=== PATIENT | male | born 1960 | race Caucasian/White ===

== ENCOUNTER 2017-09-23 19:39 | Inpatient (IN) | END 2017-09-29 16:55 | disposition home or self-care (01) | DRG 389 ==

== ENCOUNTER 2018-03-31 10:25 | Emergency (ER) | payer BC, OTHER ==
[~2018-03-31] VITALS: Ht 167.6 cm; Wt 85.0 kg
[~2018-03-31 10:25] MED LIST: ONDA8TAB83 PO
[2018-03-31 10:28] VITALS: Ht 167.6 cm; Wt 85.0 kg
[2018-03-31] MEDS ORDERED: HYDROmorphONE 1 MG/ML SYG IV STA (11:31)
[2018-03-31] MEDS ORDERED: ONDANSETRON 4 MG INJ IV STA ×2 (11:31→14:09)
[2018-03-31] MEDS ORDERED: SOD CHLORIDE 0.9% 1,000 ML IV STA (11:31)
[2018-03-31] MEDS ORDERED: HYDROmorphONE 2 MG/ML SYG IV STA (12:49)
[2018-03-31] MEDS ORDERED: OXYC-279 PO (14:01)
[2018-03-31] MEDS ORDERED: NALO4SPR NS (14:01)
[2018-03-31 14:34] VITALS: BP 121/80; PULSE 83; RESP 16
--- NOTE | 2018-03-31 14:49 | ERD ---
ER Documentation Chief Complaint Chief Complaint Complains of abdominal pain and vomiting x 2 days HPI Patient is a 57-year-old male with stage IV colon cancer who presents with abdominal pain and vomiting. He has been dealing with this since August 2017. He said last night he started with pain and vomiting. He is on chemotherapy. He said that "maybe I have food poisoning". He said that his colostomy is putting out stool and that he does not think he is obstructed. He does feel dehydrated and is having whole body cramping. He denies fevers. He has had no treatment as of yet. He does have a primary doctor, surgeon, and oncologist that he sees. Upon review of old medical records the patient one previous visit in September 2017 for small bowel obstruction. ROS All systems reviewed and are negative except as per history of present illness. Medications Home Meds Active Scripts Naloxone HCl nasal spray (Narcan 4 mg/0.1 mL nasal) 4 Mg [place], 4 MG NS .Q2-3MIN for OPIOID OVERDOSE, #2 SPRAY 0 Refills [place] 0.1 mL into one nostril. Repeat with second device into other nostril after 2-3 minutes if no or minimal response Prov:BHASKAR GOODWIN MD 03/31/18 Oxycodone HCl/Acetaminophen (Percocet 5-325 mg Tablet) 1 Each Tablet, 1 EACH PO Q6, #6 TAB Prov:BHASKAR GOODWIN MD 03/31/18 Reported Medications Ondansetron Hcl* (Ondansetron Hcl*) 8 Mg Tablet, 8 MG PO Q6H PRN for NAUSEA AND OR VOMITING, TAB 09/23/17 Allergies Allergies: Coded Allergies: iodine (Verified Allergy, Mild, 09/23/17) PMhx/Soc History of Surgery: Yes (colon sx,rectal sx) Anesthesia Reaction: No Hx Neurological Disorder: No Hx Respiratory Disorders: No Hx Cardiac Disorders: No Hx Psychiatric Problems: No Hx Miscellaneous Medical Probl: No Hx Alcohol Use: No (last 4 years) Hx Substance Use: Yes Hx Tobacco Use: No Smoking Status: Never smoker FmHx Family History: diabetes Physical Exam Vitals Vital Signs Date Temp Pulse Resp B/P (MAP) Pulse Ox O2 O2 Flow FiO2 Time Delivery Rate 03/31/18 100.3 83 16 121/80 100 Room Air 14:34 (94) 03/31/18 84 20 108/74 99 Room Air 11:55 (85) 03/31/18 99.8 106 20 123/73 98 10:28 (90) Physical Exam Const: Mild distress Head: Atraumatic Eyes: Normal Conjunctiva ENT: Normal External Ears, Nose and Mouth. Neck: Full range of motion. No meningismus. Resp: Clear to auscultation bilaterally Cardio: Regular rate and rhythm, no murmurs Abd: Soft, stoma in the left abdomen is pink and putting out stool Skin: No petechiae or rashes Back: No midline or flank tenderness Ext: No cyanosis, or edema Neur: Awake and alert Psych: Normal Mood and Affect Result Diagram: 03/31/18 1158 03/31/18 1158 Results 24 hrs Laboratory Tests Test 03/31/18 11:58 White Blood Count 9.1 10^3/ul Red Blood Count 3.14 10^6/ul Hemoglobin 8.7 g/dl Hematocrit 27.5 % Mean Corpuscular Volume 87.6 fl Mean Corpuscular Hemoglobin 27.7 pg Mean Corpuscular Hemoglobin Concent 31.6 g/dl Red Cell Distribution Width 21.6 % Platelet Count 297 10^3/UL Mean Platelet Volume 10.4 fl Immature Granulocytes % 0.700 % Neutrophils % 76.4 % Lymphocytes % 11.4 % Monocytes % 11.2 % Eosinophils % 0.0 % Basophils % 0.3 % Nucleated Red Blood Cells % 0.0 /100WBC Immature Granulocytes # 0.060 10^3/ul Neutrophils # 7.0 10^3/ul Lymphocytes # 1.0 10^3/ul Monocytes # 1.0 10^3/ul Eosinophils # 0.0 10^3/ul Basophils # 0.0 10^3/ul Nucleated Red Blood Cells # 0.0 10^3/ul Sodium Level 137 mmol/L Potassium Level 4.2 mmol/L Chloride Level 99 mmol/L Carbon Dioxide Level 25 mmol/L Anion Gap 13 Blood Urea Nitrogen 20 mg/dl Creatinine 0.67 mg/dl Est Glomerular Filtrat Rate mL/min > 60 mL/min Glucose Level 110 mg/dl Calcium Level 8.9 mg/dl Total Bilirubin 0.2 mg/dl Direct Bilirubin 0.00 mg/dl Indirect Bilirubin 0.2 mg/dl Aspartate Amino Transf (AST/SGOT) 22 IU/L Alanine Aminotransferase (ALT/SGPT) 14 IU/L Alkaline Phosphatase 140 IU/L Total Protein 7.0 g/dl Albumin 3.5 g/dl Globulin 3.50 g/dl Albumin/Globulin Ratio 1.00 Lipase 21 U/L Current Medications Medications Dose Sig/Amy Start Time Status Last (Trade) Ordered Route PRN Stop Time Admin Dose Reason Admin Sodium 1,000 ml @ Q1H STAT 03/31/18 DC 03/31/18 Chloride 1,000 mls/hr IV 11:31 11:48 03/31/18 12:30 1 mg ONCE STAT 03/31/18 DC 03/31/18 Hydromorphone IV 11:31 11:48 HCl 03/31/18 11:32 (Dilaudid) Ondansetron 4 mg ONCE STAT 03/31/18 DC 03/31/18 HCl (Zofran IV 11:31 11:48 Inj) 03/31/18 11:32 1 mg ONCE STAT 03/31/18 DC 03/31/18 Hydromorphone IV 12:49 12:55 HCl 03/31/18 12:50 (Dilaudid) Ondansetron 4 mg ONCE STAT 03/31/18 DC 03/31/18 HCl (Zofran IV 14:09 14:12 Inj) 03/31/18 14:10 Procedures/MDM Patient is a 57-year-old male who presents with abdominal pain and vomiting. I do believe that he has dehydration and was given 1 L of normal saline. Laboratory studies were basically normal other than anemia. He does not require transfusion. Electrolytes are normal. I believe the patient is stable for outpatient management. He feels better after Dilaudid, Zofran, and normal saline. The patient will need to follow-up closely with his primary doctor within 24-48 hours. He can return sooner for any worsening symptoms. I believe the risk of doing a CT scan of the abdomen and pelvis outweigh the benefits. Departure Diagnosis: Primary Impression: Abdominal pain Abdominal location: generalized Qualified Codes: R10.84 - Generalized abdominal pain Additional Impression: Vomiting Vomiting type: unspecified Vomiting Intractability: non-intractable Nausea presence: with nausea Qualified Codes: R11.2 - Nausea with vomiting, unspecified Condition: Fair Patient Instructions: Abdominal Pain, Vomiting (6Y-Adult) Referrals: Your doctor Additional Instructions: Call your primary care doctor TOMORROW for an appointment during the next 1-2 days.See the doctor sooner or return here if your condition worsens before your appointment time. BHASKAR GOODWIN MD Mar 31, 2018 14:49
== END 2018-03-31 14:48 | disposition home or self-care (01) ==
LOC: E/R 10:25
DX: R10.84 Generalized abdominal pain (principal); Z85.038 Personal history of other malignant neoplasm of large intestine
CPT/HCPCS: 80053; 83690; 85025; J1170; J2405; J7030; 36415; 96361; 96374; 96375; 96376